=== PATIENT | female | born 1965 | race Caucasian/White ===

== ENCOUNTER 2023-02-02 09:21 | Emergency (ER) | payer BC, SELFPAY ==
[2023-02-02 09:21] VITALS: BP 117/55; PULSE 69; RESP 18; TEMP 36.6; O2SAT 98; BMI 28.3
--- NOTE | 2023-02-02 09:35 | EXP.UTC ---
Discharge Plan Disposition Patient Disposition: Home, Self-Care Condition: Good Prescriptions Prescriptions: New phenazopyridine [Pyridium] 200 mg tablet 200 mg PO Q8H 2 Days Qty: 6 0RF ciprofloxacin HCl [Cipro] 500 mg tablet 500 mg PO BID 7 Days Qty: 14 0RF Referrals Follow up/Referrals: Provider,Referral, [Primary Care Provider] - See instructions Activity Restrictions/Add. Instructions Additional Instructions/Restrictions: Drink plenty of fluids. Take tylenol or ibuprofen for pain or fever. Take the medications as directed. Follow up with your regular doctor. GO TO THE ER FOR ANY WORSENING SYMPTOMS The pyridium will make your urine turn orange, this is an expected side effect. It will stain your clothes if it comes into contact with them. We will culture the urine. That will tell what bacteria is causing your infection and which antibiotics will treat it best. Sometimes the first antibiotic we prescribe turns out to not work against different bacteria. So, make sure you follow up within 3 days if you are not getting better. Clinical Impressions Clinical Impression: UTI (urinary tract infection) Stand Alone Forms Stand Alone Forms: Work/School Release Instructions Patient Instructions: Urinary Tract Infection, Urine Culture, Phenazopyridine Discharge ED Provider: Trevor Chaidez [facility] General Stated complaint: difficutly urinating, bloody urination Time Seen by Provider: 02/02/23 09:35 History of Present Illness Provider Complaint: She states that for the past 2 days she has had low back pain, dysuria, and hematuria. Related Data Previous Rx's Medication Instructions Recorded ciprofloxacin HCl 500 mg tablet 500 mg PO BID 7 days #14 tabs 02/02/23 (Cipro) phenazopyridine 200 mg tablet 200 mg PO Q8H 2 days #6 tabs 02/02/23 (Pyridium) Allergies Allergy/AdvReac Type Severity Reaction Status Date / Time No Known Allergies Allergy Verified 02/02/23 09:38 [facility] Disclaimer: The information contained in this section may have been updated after the patient was seen, as this information can be updated by other users. Social History Smoking Status: Never smoker alcohol intake: never current occupational status: employed Travel in the last 8 weeks: None ROS Obtained: Yes All systems reviewed & no additional complaints except as documented Constitutional Constitutional: Reports system reviewed and no additional complaints, except as documented, Denies chills and Denies fever(s) Eyes Eyes: Denies eye discharge ENT Ears, Nose, Mouth, and Throat: Denies dysphagia, Denies sore throat and Denies throat swelling Cardiovascular Cardiovascular: Denies chest pain and Denies dyspnea Respiratory Respiratory: Denies chest congestion, Denies cough and Denies dyspnea Gastrointestinal Gastrointestingal: Denies abdominal pain, constipation, diarrhea, dysphagia, nausea or vomiting Genitourinary Female Genitourinary: Reports as per HPI, Reports dysuria, Reports sexual dysfunction, Reports urinary frequency, Denies urinary incontinence and Reports urinary hesitancy Musculoskeletal Musculoskeletal: Denies arthralgias and Reports back pain Integumentary/Breasts Skin/Breast: Denies rash Neurologic Neurologic: Denies paresthesias Allergic/Immunologic Allergic/Immunologic: Denies throat swelling Physical Exam General General appearance: alert and in no apparent distress Head Head exam: atraumatic and normocephalic Eye Eye exam: Present normal appearance, PERRL and EOMI ENT ENT exam: Present normal exam, mucous membranes moist, TM's normal bilaterally and normal external ear exam Neck Neck exam: Present normal inspection, full ROM and trachea midline; Absent tenderness, meningismus or lymphadenopathy Chest Chest inspection: Present normal inspection and symmetric chest wall rise; Absent tenderness Respiratory Re
[2023-02-02 09:44] LABS: Apearance,Urine Clear (Clear); Bilirubin,Urine Negative (Negative); Blood, Urine 1+ (Negative); Color,Urine Yellow (Yellow); Glucose,Urine (UA) Negative (Negative); Ketones,Urine Negative (Negative); PH,Urine 5.5 (5.0-8.5); Protein,Urine 3+ (Negative); UTC Leukocyte Esterase,Urine 1+ (Negative); UTC Nitrate,Urine Negative (Negative); Urobilinogen,Urine 0.2 EU/dl (0.2)
[2023-02-02 10:13] VITALS: BP 117/55; PULSE 69; RESP 18; TEMP 36.6; O2SAT 98
== END 2023-02-02 10:16 | disposition home or self-care (01) ==
PROVIDERS: Emergency Provider Nurse Practitioner Family
DX: N39.0 Urinary tract infection, site not specified (principal)
CPT/HCPCS: 81003; 99204; 99212; G0463

== ENCOUNTER 2023-03-17 20:54 | Emergency (ER) | payer BC, SELFPAY ==
[2023-03-17] VITALS (7 sets, daily range): BP systolic 99–128; BP diastolic 34–84; PULSE 90–117; RESP 15–21; TEMP 37.1; O2SAT 93–96; BMI 21.7
[2023-03-17 21:07] LABS: Microscopic, Urine URINE MICROSCOPIC (MICROSCOPIC)
[2023-03-17 21:13] LABS: Appearance,Urine CLEAR (Clear); Bilirubin,Urine Negative (Negative); Blood, Urine 1+ (Negative); Color,Urine YELLOW (Yellow); Glucose,Urine (UA) Negative (Negative); Ketones,Urine Negative (Negative); Leukocyte Esterase,Urine 3+ (Negative); Nitrate,Urine Negative (Negative); PH,Urine 5.5 (5.0-8.5); Protein,Urine Negative (Negative); Urobilinogen,Urine 0.2 EU/dl (0.2)
--- NOTE | 2023-03-17 21:21 | CT_ITS ---
PROCEDURE INFORMATION: Exam: CT Abdomen And Pelvis With Contrast Exam date and time: 03/17/2023 9:59 PM Age: 57 years old Clinical indication: Fever; Abdominal pain; Additional info: Generalized abd pain, llq ttp, fever, vom TECHNIQUE: Imaging protocol: Computed tomography of the abdomen and pelvis with contrast. Radiation optimization: All CT scans at this facility use at least one of these dose optimization techniques: automated exposure control; mA and/or kV adjustment per patient size (includes targeted exams where dose is matched to clinical indication); or iterative reconstruction. Contrast material: ISOVUE; Contrast volume: 75 ml; Contrast route: IV; REPORTING DATA: Count of CT and Cardiac NM exams in prior 12 months: This patient has received 0 known CTs and 0 known cardiac nuclear medicine studies in the 12 months prior to the current study. COMPARISON: No relevant prior studies available. FINDINGS: Lungs: Mild atelectasis. Coronary arteries: Mild coronary artery calcifications. Liver: Normal. No mass. Gallbladder and bile ducts: Nonvisualized gallbladder, likely surgically absent. No ductal dilation. Pancreas: Normal. No ductal dilation. Spleen: Normal. No splenomegaly. Adrenal glands: Normal. No mass. Kidneys and ureters: Several small fluid attenuating cyst within the left kidney measuring up to 1.1 cm. Stomach and bowel: Mild wall thickening of the sigmoid colon on a background of moderate diverticular disease with mild pericolonic fat stranding. Appendix: No evidence of appendicitis. Intraperitoneal space: Unremarkable. No free air. No significant fluid collection. Vasculature: Unremarkable. No abdominal aortic aneurysm. Lymph nodes: Unremarkable. No enlarged lymph nodes. Urinary bladder: Unremarkable as visualized. Reproductive: Unremarkable as visualized. Bones/joints: No acute osseous findings. Soft tissues: Tiny fat containing umbilical hernia. IMPRESSION: Mild acute uncomplicated sigmoid colon diverticulitis. COMMENTS: Consistent with the [employer]'s Incidental Findings Committee white paper (J Am Phil Radiol 2018): Any incidental renal lesion less than 1 cm or classified as too small to characterize, or any incidental cystic renal lesion characterized as simple-appearing, is likely benign. No follow-up imaging is recommended for these lesions per consensus recommendations based on imaging criteria.
--- NOTE | 2023-03-17 21:21 | CT_ITS ---
PROCEDURE INFORMATION: Exam: CT Head Without Contrast Exam date and time: 03/17/23 09:55 PM Age: 57 years old Clinical indication: Pain; Headache; Additional info: Severe headache TECHNIQUE: Imaging protocol: Computed tomography of the head without contrast. Radiation optimization: All CT scans at this facility use at least one of these dose optimization techniques: automated exposure control; mA and/or kV adjustment per patient size (includes targeted exams where dose is matched to clinical indication); or iterative reconstruction. REPORTING DATA: Count of CT and Cardiac NM exams in prior 12 months: This patient has received 0 known CTs and 0 known cardiac nuclear medicine studies in the 12 months prior to the current study. COMPARISON: No relevant prior studies available. FINDINGS: Brain: Normal. No hemorrhage. Unremarkable white matter. No mass effect. Cerebral ventricles: No ventriculomegaly. Paranasal sinuses: Visualized sinuses are unremarkable. No fluid levels. Mastoid air cells: Visualized mastoid air cells are well aerated. Bones/joints: Unremarkable. No acute fracture. Soft tissues: Unremarkable. IMPRESSION: No acute intracranial abnormality.
[2023-03-17 21:28] LABS: Basophils % 0.1 % (0.1-2.0); Eosinophils # 0.2 K/mm3 (0.0-0.4); Eosinophils % 1.6 % (0.1-12.0); Hematocrit 44.1 % (37.0-47.0); Lymphocytes # 0.6 K/mm3 (0.7-4.5); Lymphocytes % 5.6 % (10-50); Mean Corpuscular HGB Conc 33.9 g/dL (31.8-35.4); Mean Corpuscular Hemoglobin 30.4 pg (27.0-31.2); Mean Corpuscular Volume 89.7 fl (81-99); Mean Platelet Volume 7.1 fl (7.4-10.4); Monocytes # 0.3 K/mm3 (0.1-1.0); Neutrophils # 8.9 K/mm3 (1.8-7.8); Neutrophils % 89.7 % (37.0-80.0); Platelet Count 296 K/mm3 (142-424); Red Blood Count 4.92 M/mm3 (4.20-5.40); Red Cell Distribution Width 13.1 % (11.5-17.5); White Blood Count 9.9 K/mm3 (4.8-10.8)
[2023-03-17 21:29] LABS: MANUAL DIFFERENTIAL MANUAL DIFFERENTIAL (MANUAL DIFF)
[2023-03-17 21:31] LABS: Chloride 104 mmol/L (98-107); Sodium 139 mmol/L (136-145)
--- NOTE | 2023-03-17 21:32 | ECG_ITS ---
APPROVED REPORT Exam: Resting ECG HR:109 bpm ECG Measurements Heart Rate 109 AXES IN 168 P 8 QRSd 82 QRS 67 QT 255 T 30 QTc 319 Conclusion SINUS TACHYCARDIA ABNORMAL RHYTHM ECG UNCONFIRMED REPORT Electronically signed by : Carlos Garcia MD 03/18/2023 17:13:47
[2023-03-17 21:33] LABS: Bacteria,Urine Trace /lpf
[2023-03-17 21:33] LABS: Alanine Aminotransferase 64 U/L (12-78); Alkaline Phosphatase 149 U/L (38-126); Aspartate Amino Transferase 48 U/L (14-36); Bilirubin,Total 0.5 mg/dl (0.2-1.3); Blood Urea Nitrogen 15 mg/dl (7-17); Creatinine Clearance Estimated 105 mL/min (50-200); Estimated Glomerular Filt Rate 128 ml/min (>60); GFR (African American) 155 ML/MIN (>60)
[2023-03-17 21:34] LABS: Albumin Level 4.6 g/dl (3.5-5.0); Albumin/Globulin Ratio 1.2 (1.1-1.8); Calcium 9.2 mg/dl (8.4-10.2); Carbon Dioxide 23 mmol/L (22.0-30.0); Globulin 3.7 g/dL (1.3-3.2); Glucose 125 mg/dl (74-100); Lipase 57 U/L (23-300); Total Protein,Serum 8.3 g/dl (6.3-8.2)
[2023-03-17 21:35] LABS: Lactic Acid 1.4 mmol/L (0.7-2.1)
[2023-03-17 21:42] LABS: Eosinophils % 2 % (0-3); Lymphocytes % 4 % (10-50); Neutrophils % 94 % (42-76); Platelet Estimate Normal; RBC Morphology Normal; Total Cells Counted 100
--- NOTE | 2023-03-17 22:58 | [facility].EDGENADL ---
Discharge Plan Disposition Patient Disposition: Home, Self-Care Condition: Good Prescriptions Prescriptions: New nitrofurantoin macrocrystal 100 mg capsule 100 mg PO BID 5 Days Qty: 10 0RF Rx Instructions: must administer with a meal/food ondansetron 4 mg tablet,disintegrating 4 mg PO Q8H PRN (Reason: nausea and vomiting) 4 Days Qty: 12 0RF naproxen 500 mg tablet 500 mg PO BID PRN (Reason: pain) Qty: 20 0RF oxycodone 5 mg tablet 5 mg PO Q8H PRN (Reason: pain) Qty: 12 0RF No Action phenazopyridine [Pyridium] 200 mg tablet 200 mg PO Q8H 2 Days Qty: 6 0RF ciprofloxacin HCl [Cipro] 500 mg tablet 500 mg PO BID 7 Days Qty: 14 0RF Referrals Follow up/Referrals: Provider,Referral, MD [Primary Care Provider] - See instructions Activity Restrictions/Add. Instructions Additional Instructions/Restrictions: You were evaluated in the emergency department today. At this time, feel that your symptoms are due to diverticulitis and a urinary tract infection. Please cone picker your prescriptions at the pharmacy and take them as prescribed. Complete the full course of your antibiotics. Follow-up with your primary care provider over the next 3 days for reassessment. I encourage a bland and liquid diet until your abdominal pain has resolved. return to the emergency department for any new or worsening symptoms Clinical Impressions Clinical Impression: Diverticulitis UTI (urinary tract infection) Qualifiers: Urinary tract infection type: acute cystitis Hematuria presence: with hematuria Qualified Code(s): N30.01 - Acute cystitis with hematuria Instructions Patient Instructions: DI for Diverticulitis, DI for Urinary Tract Infection (UTI), DI for Acute Abdominal Pain Discharge ED Provider: Barb Moran General Adult HPI General Chief complaint: Abdominal Pain Stated complaint: abd pain,fever,vomiting Time Seen by Provider: 03/17/23 21:01 Mode of Arrival: Ambulatory Source of Information: Patient Limitations: No Limitations Description of Symptoms (Recalled from ER Triage Doc. by RN): Patient ambulatory to ED via POV for abdominal pain with headache. Patient states that she has been feeling bad for the past 3 days. Intially started with headache that has progressed to LLQ abdominal pain radiating LUQ. Patient c/o bloating and generalized abdominal discomfort. Last BM 03/17/21 formed and soft. History of Present Illness HPI narrative: This patient is a 57-year-old female presenting to the emergency department for evaluation with concern for headache, left lower quadrant abdominal pain, bloating, and generalized abdominal discomfort. She states that she has also had subjective fevers and chills at home. She states that this is been going on for approximately 3 days now. She denies any nausea, vomiting, changes in bowel movements, or other concerns. Her last bowel movement was today and was soft. She also denies any chest pain or shortness of breath. Her headache in the front of her head and she took Aleve at home with some improvement, but has been persistent. No vision changes, numbness, tingling, or other concerns noted at this time. Related Data Previous Rx's Medication Instructions Recorded ciprofloxacin HCl 500 mg tablet 500 mg PO BID 7 days #14 tabs 02/02/23 (Cipro) phenazopyridine 200 mg tablet 200 mg PO Q8H 2 days #6 tabs 02/02/23 (Pyridium) naproxen 500 mg tablet 500 mg PO BID PRN pain #20 tabs 03/17/23 nitrofurantoin macrocrystal 100 mg 100 mg PO BID 5 days #10 caps 03/17/23 capsule ondansetron 4 mg disintegrating 4 mg PO Q8H PRN nausea and 03/17/23 tablet vomiting 4 days #12 tabs oxycodone 5 mg tablet 5 mg PO Q8H PRN pain #12 tabs 03/17/23 Allergies Allergy/AdvReac Type Severity Reaction Status Date / Time No Known Allergies Allergy Verified 02/02/23 09:38 [facility] Disclaimer: The information contained in this section may have been updated after the jenise
== END 2023-03-17 23:33 | disposition home or self-care (01) ==
PROVIDERS: Emergency Provider Emergency Medicine
DX: N30.01 Acute cystitis with hematuria (principal); R10.32 Left lower quadrant pain; R51.9 Headache, unspecified; R00.0 Tachycardia, unspecified
CPT/HCPCS: 70450; 74177; 80053; 81001; 83605; 83690; 85007; 85025; 87086; 93005; 96374; 96375; 99285; J1790; Q9967